=== PATIENT | male | born 1975 | race Caucasian/White ===

== ENCOUNTER 2016-05-11 | Emergency (ER) | payer MEDICARE ==
[2016-05-11 07:43] LABS: HEMOGLOBIN 15.2 gm/dl (14.0-17.5); RED BLOOD COUNT 5.24 M/UL (4.20-5.50); WHITE BLOOD COUNT 10.9 K/UL (4.5-11.0)
[2016-05-11 07:51] LABS: BUN/CREATININE RATIO 11 (0-10)
== END 2016-05-11 13:23 | disposition home or self-care (01) ==
PROVIDERS: Physician Assistant
DX: G40.409 Other generalized epilepsy and epileptic syndromes, not intractable, without status epilepticus (principal); F11.10 Opioid abuse, uncomplicated; F12.10 Cannabis abuse, uncomplicated
CPT/HCPCS: 36415; 70450; 71010; 80053; 80307; 81001; 82550; 82553; 83874; 84484; 85025; 93005; 96374; 99285; G0480; J1953; J7050

== ENCOUNTER → 2016-07-07 | Outpatient (CLI) | payer MEDICARE | LOC: EMI 08:27 | DX: R56.9 Unspecified convulsions (principal); J32.0 Chronic maxillary sinusitis | CPT/HCPCS: 70551 ==

== ENCOUNTER 2020-04-10 18:24 | Emergency (ER) | payer MEDICARE | END 2020-04-10 19:58 | disposition left against medical advice (07) | LOC: ER1 18:24 | DX: Z53.21 Procedure and treatment not carried out due to patient leaving prior to being seen by health care provider (principal) ==